=== PATIENT | male | born 2000 | race Caucasian/White ===

== ENCOUNTER 2020-01-28 01:13 | Emergency (ER) | payer MEDICAID, OTHER ==
[~2020-01-28] VITALS: Ht 170.2 cm; Wt 73.6 kg
[2020-01-28] MEDS ORDERED: ACETAMINOPHEN 325 MG TABLET PO ONE (01:30)
[2020-01-28 02:00] LABS: BASOPHILS # (AUTO) 0.03 x10^3/uL (0-0.1); BASOPHILS % (AUTO) 1 % (0-1); EOSINOPHILS # (AUTO) 0.03 x10^3/uL (0-0.4); EOSINOPHILS % (AUTO) 1 % (1-7); LYMPHOCYTES # (AUTO) 1.56 x10^3/uL (1-3.4); LYMPHOCYTES % (AUTO) 28 % (22-44); MD NO; MEAN CORPUSCULAR HGB CONC 33.1 g/dL (33.2-36.2); MEAN CORPUSCULAR VOLUME 87.7 fL (81-97); MEAN PLATELET VOLUME 8.4 fL (7.4-10.4); MONOCYTES # (AUTO) 0.64 x10^3/uL (0.2-0.8); MONOCYTES % (AUTO) 12 % (2-9); NEUTROPHILS # (AUTO) 3.33 x10^3/uL (1.8-6.8); NEUTROPHILS % (AUTO) 60 % (42-75); PLATELET COUNT 218 x10^3/uL (130-400); RED BLOOD COUNT 5.57 x10^6/uL (4.38-5.82); RED CELL DISTRIBUTION WIDTH 12.4 % (9.4-14.8)
--- NOTE | 2020-01-28 02:08 | NUR ---
assumed care of pt. pt here for evaluation after recieving a positive COVID test result today. lab and CXR has been to bedside. pt sitting up on gurney in no apparent distress, texting on cell phone. no family at bedside
[2020-01-28 02:13] LABS: ALANINE AMINOTRANSFERASE 71 U/L (12-78); ALBUMIN 4.3 g/dL (3.4-5.0); ANION GAP 7 mmol/L (5-15); CALCIUM 9.1 mg/dL (8.5-10.1); CHLORIDE 106 mmol/L (98-107)
--- NOTE | 2020-01-28 02:13 | NUR ---
report to Naveen GONZALEZ for lunch
[2020-01-28 02:15] LABS: ALKALINE PHOSPHATASE 60 U/L (45-117); BILIRUBIN,TOTAL 0.5 mg/dL (0.2-1.0); CREATININE 0.77 mg/dL (0.7-1.3); TOTAL PROTEIN 8.3 g/dL (6.4-8.2)
[2020-01-28] MEDS ORDERED: ACETAMINOPHEN 325 MG TABLET ONE (02:22)
[2020-01-28 02:49] VITALS: BP 111/68
--- NOTE | 2020-01-28 02:49 | NUR ---
this pt was D/C by another RN
== END 2020-01-28 02:57 | disposition home or self-care (01) ==
LOC: ED 01:59
DX: U07.1 COVID-19 (principal); J06.9 Acute upper respiratory infection, unspecified; J40 Bronchitis, not specified as acute or chronic; R50.9 Fever, unspecified; R05 Cough; R06.00 Dyspnea, unspecified; R00.0 Tachycardia, unspecified; R06.02 Shortness of breath
CPT/HCPCS: 36415; 71045; 80053; 85025; 93005; 99285